=== PATIENT | male | born 1990 | race Caucasian/White ===

== ENCOUNTER 2022-07-03 10:50 | Outpatient (REF) | payer OTHER, SELFPAY ==
[2022-07-03 11:09] LABS: MANUAL DIFF FLAG NO
[2022-07-03 11:24] LABS: Basophils Percent Auto 0.4 % (0-2); Eosinophils Absolute Auto 0.1 X10*3/uL (0.0-0.4); Eosinophils Percent Auto 0.9 % (0-4); Hematocrit 46.2 % (42.0-52.0); Hemoglobin 14.8 g/dl (14.0-18.0); Imm Gran Abs Auto 0.02 X10*3/uL (0.00-0.03); Imm Gran Pct Auto 0.3 % (0.0-0.4); Lymphocytes Absolute Auto 1.7 X10*3/uL (1.2-4.9); Mean Corpuscular Hemoglobin 26.5 pg (27.0-33.0); Mean Corpuscular Volume 82.8 fL (80.0-98.0); Mean Platelet Volume 11.6 fL (9.4-12.4); Monocytes Absolute Auto 0.6 X10*3/uL (0.1-1.2); Monocytes Percent Auto 8.7 % (2-11); Neutrophils Absolute Auto 4.6 x10*3/uL (2.0-8.3); Neutrophils Percent Auto 65.7 % (45-73); Platelet Count 314 X10*3/uL (160-400); Red Blood Count 5.58 X10*6/uL (4.60-5.80); White Blood Count 7.1 X10*3/uL (4.8-10.8)
[2022-07-03 12:23] LABS: Alanine Aminotransferase 20 U/L (0-40); Albumin Level 4.4 g/dL (3.5-5.0); Alkaline Phosphatase 89 U/L (39-117); Anion Gap 14 (12-20); Aspartate Amino Transferase 23 U/L (5-37); Blood Urea Nitrogen 16 mg/dL (9-16); Calcium 9.8 mg/dL (8.4-10.2); Carbon Dioxide 30 mmol/L (22-29); Chloride 102 mmol/L (96-108); Cholesterol 134 mg/dL; Estimated Glomerular Filt Rate > 60; Glucose Random 80 mg/dL (60-115); HDL Cholesterol 51 mg/dL; LDL Cholesterol Calculated 75 mg/dl; Potassium 4.7 mmol/L (3.3-5.1); Sodium 141 mmol/L (135-145); Total Protein 7.5 g/dL (6.5-8.0); Triglycerides 40 mg/dL
[2022-07-03 12:29] LABS: Amphetamine Screen Urine Not Detected (Not Detect); Barbiturates, Urine Not Detected (Not Detect); Benzodiazepines Screen Urine Not Detected (Not Detect); Cannabinoid Screen Urine Not Detected (Not Detect); Cocaine Screen Urine Not Detected (Not Detect); Fentanyl, urine Not Detected (Not Detect); Opiate Screen Urine Not Detected (Not Detect); Phencyclidine Screen Urine Not Detected (Not Detect)
[2022-07-03 12:35] LABS: Thyroid Stimulating Hormone 0.97 uIU/mL (0.32-4.0)
== END 2022-07-03 10:51 | disposition home or self-care (01) ==
LOC: HO.LAB 10:50
PROVIDERS: PCP Internal Medicine; Visit Provider Internal Medicine
DX: Z00.00 Encounter for general adult medical examination without abnormal findings (principal); F31.9 Bipolar disorder, unspecified; F90.8 Attention-deficit hyperactivity disorder, other type
CPT/HCPCS: 80053; 80061; 80307; 84443; 85025

== ENCOUNTER 2022-11-03 16:22 | Inpatient (IN) | payer BC, SELFPAY ==
[2022-11-03] VITALS (8 sets, daily range): BP systolic 98–127; BP diastolic 55–78; PULSE 78–112; RESP 14–18; TEMP 36.4–36.6; O2SAT 93–100; BMI 25.0
--- NOTE | ~2022-11-03 | CT_ITS ---
EXAMINATION: CT chest wo IV con. CLINICAL INFORMATION: Reason for Exam diego carterer epigastric pain COMPARISON: No prior CT available for comparison. TECHNIQUE: Multidetector volumetric CT imaging of the chest was done. Axial MIP volume rendering provided. Sagittal and coronal reformatted images were obtained. This CT examination was performed using dose optimization techniques as appropriate, variously including the following: *Automated exposure control *Adjustment of mA and/or kV according to patient size (this includes techniques or standardized protocols for targeted exams where dose is matched to indication/reason for exam; i.e. extremities or head) *Use of iterative reconstruction technique CONTRAST: Noncontrasted study. DLP: 257 mGy-cm FINDINGS: COLLAR SETTER OVERLOCK: LINES/TUBES: Distance Education Faculty Liaison reviewed, no lines. LUNGS: Lung parenchyma: No evidence of significant interstitial disease. Lung nodules/masses: There are no significant lung nodules. AIRWAYS: Trachea and bronchi are normal. PLEURA: No pleural effusion or pneumothorax. MEDIASTINUM AND LAI: No mediastinal, hilar or axillary lymphadenopathy. No mediastinal mass. No CT evidence of esophageal perforation, no mediastinal pneumatosis. There is air in the esophagus. VESSELS: HEART AND PERICARDIUM: Thoracic aorta is normal in size. Heart is normal in size. No pericardial effusion. No coronary calcifications. Pulmonary arteries are normal in size. LOWER NECK, AXILLA: The visualized thyroid gland is unremarkable. No axillary mass or adenopathy. VISUALIZED ABDOMEN: Unremarkable CHEST WALL AND BONES: No chest wall mass. The visualized bony thorax is within normal limits. CT/CT chest wo IV con IMPRESSION: * No CT evidence of esophageal perforation, no mediastinal pneumatosis. There is air in the esophagus. * Lungs are clear. * No adenopathy.
--- NOTE | 2022-11-03 16:39 | ECG_ITS ---
Test Reason : OD Blood Pressure : / mmHG Vent. Rate : 103 BPM Atrial Rate : 103 BPM P-R Int : 158 ms QRS Dur : 078 ms QT Int : 308 ms P-R-T Axes : 063 026 032 degrees QTc Int : 403 ms Sinus tachycardia Otherwise normal ECG No previous ECGs available Referred By: Nicolette Singh Electronically Signed By:BROCK PATTON
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
--- NOTE | 2022-11-03 16:48 | PC.NURSE ---
call placed to poison control
--- NOTE | 2022-11-03 17:12 | PC.NURSE ---
per poison control - comfort measures at this time. possible need to contact GI to complete an upper endoscopy. keep NPO at this time
[2022-11-03 17:21] LABS: MANUAL DIFF FLAG NO
[2022-11-03 17:23] LABS: Basophils Percent Auto 0.4 % (0-2); Eosinophils Absolute Auto 0.1 X10*3/uL (0.0-0.4); Eosinophils Percent Auto 0.7 % (0-4); Hematocrit 44.2 % (42.0-52.0); Hemoglobin 14.4 g/dl (14.0-18.0); Imm Gran Abs Auto 0.04 X10*3/uL (0.00-0.03); Imm Gran Pct Auto 0.4 % (0.0-0.4); Lymphocytes Absolute Auto 1.3 X10*3/uL (1.2-4.9); Lymphocytes Percent Auto 12.3 % (20-40); Mean Corpuscular HGB Conc 32.6 g/dl (31.0-36.0); Mean Corpuscular Hemoglobin 26.3 pg (27.0-33.0); Mean Corpuscular Volume 80.8 fL (80.0-98.0); Mean Platelet Volume 10.9 fL (9.4-12.4); Monocytes Absolute Auto 0.5 X10*3/uL (0.1-1.2); Monocytes Percent Auto 4.6 % (2-11); Neutrophils Absolute Auto 8.9 x10*3/uL (2.0-8.3); Neutrophils Percent Auto 81.6 % (45-73); Platelet Count 273 X10*3/uL (160-400); Red Blood Count 5.47 X10*6/uL (4.60-5.80); Red Cell Distribution Width 14.5 % (11.0-16.0); White Blood Count 10.9 X10*3/uL (4.8-10.8)
[2022-11-03 17:31] LABS: Appearance Urine Clear; Color Urine Yellow; Glucose Urine UA Negative (Negative); Leukocyte Esterase Urine Negative (Negative); Nitrite Urine Negative (Negative); PH 6.5 (5.0-9.0); Specific Gravity - Urine 1.015 (1.005-1.025); Urine Blood Negative (Negative); Urine Ketones Negative (Negative); Urine Protein Trace mg/dL (Neg-Trace)
[2022-11-03 17:35] LABS: COVID-19 Test Negative (Negative); IDNOW Serial# 16C4AD1C
[2022-11-03 17:43] LABS: Cocaine Screen Urine Not Detected (Not Detect)
[2022-11-03 17:45] LABS: Alanine Aminotransferase 25 U/L (0-40); Albumin Level 4.3 g/dL (3.5-5.0); Alkaline Phosphatase 87 U/L (39-117); Anion Gap 13 (12-20); Aspartate Amino Transferase 24 U/L (5-37); Bilirubin Total 0.4 mg/dL (0.0-1.0); Blood Urea Nitrogen 12 mg/dL (9-16); Calcium 9.8 mg/dL (8.4-10.2); Carbon Dioxide 28 mmol/L (22-29); Chloride 105 mmol/L (96-108); Creatinine Clr Calc Pharmacy 104.6; Estimated Glomerular Filt Rate > 60; Ethanol < 10 mg/dL; Glucose Random 100 mg/dL (60-115); Lipase 18 U/L (8-78); Potassium 4.5 mmol/L (3.3-5.1); Salicylate < 5.0 mg/dL (15-30); Sodium 141 mmol/L (135-145); Total Protein 6.8 g/dL (6.5-8.0)
[2022-11-03 17:49] LABS: Fentanyl, urine Not Detected (Not Detect)
[2022-11-03 17:51] LABS: Amphetamine Screen Urine POSITIVE (Not Detect); Barbiturates, Urine Not Detected (Not Detect); Benzodiazepines Screen Urine Not Detected (Not Detect); Cannabinoid Screen Urine Not Detected (Not Detect); Opiate Screen Urine Not Detected (Not Detect); Phencyclidine Screen Urine Not Detected (Not Detect)
[2022-11-03 17:58] LABS: Acetaminophen LAB < 1 mcg/mL (<30); Troponin-I High Sensitivity < 3.5 ng/L (<3.5-35.0)
--- NOTE | 2022-11-03 20:22 | PC.NURSE ---
Janeth from Poison control called for an update on pt.
--- NOTE | 2022-11-03 20:23 | PM.EVENT ---
Event Note Date of Service: 11/03/22 Event Note: GI Consult-Full note dictated-Hx via patient and ER staff Imp: Caustic ingestion in a 30 yo male several hours ago. He describes drinking at least 10 ounces of the cleaner touch up worker, but then followed this with 6 bottles of water . Denies N/V. He has some throat discomfort. Denies swallowing nor breathing difficulties. CT of chest is unremarkable. His exam is unremarkable except for some erythema on his tongue, but no obvious duke. Rec: EGD this evening for prognostic information and to help decide further treatment re: need for hospitalization, diet, Thoracic surgery consult, etc. Full consent obtained from him for the endoscopy, including risks of bleeding and perforation. Thanks Time Spent With Patient Time: Total time managing care of this patient today ____ minutes.
--- NOTE | 2022-11-03 20:36 | MHC.SHP ---
Pre-Procedural Eval Section A Date of Service: 11/03/22 The patient is an INPATIENT: Yes The History & Physical has been completed within 30 days and I have reviewed it.: Yes Section B Chief Complaint: Stomach pain, Draino consumption per EMS Allergies: Allergies Allergy/AdvReac Type Severity Reaction Status Date / Time No Known Allergies Allergy Unverified 07/19/20 19:16 [No Known Allergies*] Plan I have reviewed the history and physical and performed a pertinent physical examination on my patient. No changes have occurred unless specified. Time Spent With Patient Time: Total time managing care of this patient today ____ minutes.
--- NOTE | 2022-11-03 20:53 | PC.NURSE ---
RN to RN report given to CLEMENTE Parkinson. Pt being transferred to the OR and is aware of plan care.
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
--- NOTE | 2022-11-03 21:47 | PM.OP ---
Brief Operative Note Date of Service: 11/03/22 Pre-op diagnosis: Caustic ingestion Post-op diagnosis: other (Grade 1-2 proximal gastric injury, normal esophagus) Procedure: EGD Surgeon: Олег Joyner Anesthesia: GETA Was an Utility Accounts Director used for this Procedure?: No Estimated blood loss (mL): 0 Pathology: none sent Condition: stable Disposition: PACU
--- NOTE | 2022-11-03 21:52 | PM.EVENT ---
Event Note Date of Service: 11/03/22 Event Note: GI-EGD-Full note dictated Findings: 1. [id number] ulcerations 2. Esophagus--no mucosal abnormalities---no ulcerations, no necrosis, no erythema, no exudate 3. Stomach-portion of the proximal stomach between 40-50cm with mucosal erythema, exudate, and some superficial ulcerations along the proximal folds---no sign of necrosis; gastric antrum and pylorus WNL 3. Duodenum WNL Plan: Observe. IV PPI x 24-48 hours, then po PPI for 1-2 months. Full liquid diet for 24 hours, then regular diet. Avoid all aspirin and NSAIDs. Thanks Time Spent With Patient Time: Total time managing care of this patient today ____ minutes.
--- NOTE | 2022-11-03 21:57 | P.CONAN_ITS ---
[facility] Active Problems Active Problems: All Active Problems (Updated 11/03/22 @ 17:55 by AGUS Kilpatrick) Suicide and self-inflicted injury by caustic substance (Acute) Family History Family history of problems with anesthesia: No Surgical History History of Problems with Anesthesia: No Social History Social History Smoked in Last 30 Days: No Advance Directives: No Advance Directives Information Provided: No Meds Allergies Allergy/AdvReac Type Severity Reaction Status Date / Time No Known Allergies Allergy Unverified 07/19/20 19:16 [No Known Allergies*] Active Medications: Current Medications Pantoprazole Sodium (Pantoprazole Sodium 40 Mg/10 Ml Vial) 40 mg IVPUSH BID@0630,1630 [facility] Exam Exam Date and Time: November 03, [id number] Height,Weight and Vital Signs: Height 5 ft 6 in Weight 70.307 kg Last Vital Signs Temp 97.9 F 11/03/22 18:39 Pulse 96 11/03/22 18:39 Resp 16 11/03/22 18:39 BP 110/68 11/03/22 18:39 Pulse Ox 97 11/03/22 18:39 O2 Del Method 11/03/22 18:39 Pertinent Lab Results Pertinent Lab Results: Laboratory Tests 11/03/22 11/03/22 11/03/22 17:13 17:13 17:13 WBC 10.9 H RBC 5.47 Hgb 14.4 Hct 44.2 MCV 80.8 MCH 26.3 L MCHC 32.6 RDW 14.5 Plt Count 273 MPV 10.9 Immature Gran % (Auto) 0.4 Neut % (Auto) 81.6 H Lymph % (Auto) 12.3 L [place] % (Auto) 4.6 Eos % (Auto) 0.7 Baso % (Auto) 0.4 Lymph # (Auto) 1.3 [place] # (Auto) 0.5 Eos # (Auto) 0.1 Baso # (Auto) 0.0 Abs Immat Gran (auto) 0.04 H Absolute Neuts (auto) 8.9 H Absolute Nucleated RBC 0.000 Nucleated RBC % (auto) 0.0 Sodium 141 Potassium 4.5 Chloride 105 Carbon Dioxide 28 Anion Gap 13 BUN 12 Creatinine 0.94 Estim Creat Clear Calc 104.6 Estimated GFR > 60 Random Glucose 100 Calcium 9.8 Magnesium 2.0 Total Bilirubin 0.4 AST 24 ALT 25 Alkaline Phosphatase 87 Troponin I High Sens < 3.5 Total Protein 6.8 Albumin 4.3 Lipase 18 Urine Color Urine Appearance Urine pH Ur Specific [place] Urine Protein Urine Glucose (UA) Urine Ketones Urine Blood Urine Nitrite Ur Leukocyte Esterase Salicylates < 5.0 L Urine Opiates Screen Urine Fentanyl Screen Acetaminophen < 1 Ur Barbiturates Screen Ur Phencyclidine Scrn Ur Amphetamines Screen U Benzodiazepines Scrn Urine Cocaine Screen U Marijuana (THC) Screen Ethyl Alcohol < 10 COVID-19 (ALEX) COVID-19 [employer] Com 11/03/22 11/03/22 11/03/22 17:13 17:21 17:21 WBC RBC Hgb Hct MCV MCH MCHC RDW Plt Count MPV Immature Gran % (Auto) Neut % (Auto) Lymph % (Auto) [place] % (Auto) Eos % (Auto) Baso % (Auto) Lymph # (Auto) [place] # (Auto) Eos # (Auto) Baso # (Auto) Abs Immat Gran (auto) Absolute Neuts (auto) Absolute Nucleated RBC Nucleated RBC % (auto) Sodium Potassium Chloride Carbon Dioxide Anion Gap BUN Creatinine Estim Creat Clear Calc Estimated GFR Random Glucose Calcium Magnesium Total Bilirubin AST ALT Alkaline Phosphatase Troponin I High Sens Total Protein Albumin Lipase Urine Color Yellow Urine Appearance Clear Urine pH 6.5 Ur Specific [place] 1.015 Urine Protein Trace Urine Glucose (UA) Negative Urine Ketones Negative Urine Blood Negative Urine Nitrite Negative Ur Leukocyte Esterase Negative Salicylates Urine Opiates Screen Not Detected Urine Fentanyl Screen Not Detected Acetaminophen Ur Barbiturates Screen Not Detected Ur Phencyclidine Scrn Not Detected Ur Amphetamines Screen POSITIVE H U Benzodiazepines Scrn Not Detected Urine Cocaine Screen Not Detected U Marijuana (THC) Screen Not Detected Ethyl Alcohol COVID-19 (ALEX) Negative COVID-19 Clin Com See Note Airway Mallampati Class: II TM Dist: >3cm Neck ROM: Full Assessment and Plan Assessment Anesthesia Assessment: Anesthesia Plan Discussed and Chart Reviewed Final Anesthetic Review Family History of Problems with Anesthesia: No History of Problems with Anesthesia: No NPO: Yes ASA Class: II and Emergency Final Preanesthetic Review: No Changes in Pt Med Stat, Meds/Allgs Chart Reviewed, Consent Obtained/Reviewed and Anes Risks/Benef Reviewed Patient Risk: Low Procedure Risk: Low Anesthetic Plan Anesthetic Plan: GA Disposition: Standard PACU
--- NOTE | 2022-11-03 22:46 | PC.NURSE ---
Pt returned from OR. Arousable to verbal stimuli. VSS. Will continue to monitor.
[2022-11-03] MEDS: Pantoprazole Sodium 40 MG/10 ML VIAL IVPUSH (23:15)
--- NOTE | 2022-11-03 23:16 | OP_ITS ---
SURGEON: Олег Joyner MD INDICATIONS: The patient presents for evaluation of caustic ingestion consisting of liquid harness cleaner. Full consent obtained from him for this, including risks of bleeding and perforation. PREOPERATIVE DIAGNOSIS: Caustic ingestion. POSTOPERATIVE DIAGNOSIS: Caustic ingestion. Grade 2A injury to the proximal stomach. Normal esophagus. PROCEDURE PERFORMED: Esophagogastroduodenoscopy. ESTIMATED BLOOD LOSS: COMPLICATIONS: ANESTHESIA: General anesthesia. ASSISTANTS: SPECIMENS: DESCRIPTION OF PROCEDURE: The patient was placed in the supine position. The Olympus video gastroscope was passed into the posterior oropharynx. Inspection of the oropharyngeal area did not reveal any sign of mucosal injury. The upper esophageal sphincter was well visualized and appeared patent and without any sign of mucosal injury. The scope easily entered into the esophagus. The esophagus was carefully inspected, and appeared completely normal without any sign of mucosal injury such as erythema, ulceration, nor necrosis. The gastroesophageal junction appeared normal at 39 cm. The scope easily entered into the stomach. The scope was advanced to the pylorus and the duodenum was cannulated to the descending portion. The duodenum including the bulb appeared normal. The scope was withdrawn back in the stomach. The pyloric channel appeared normal without any sign of stenosis, nor injury. The gastric antrum and body appeared normal with good peristalsis. There was no sign of any mucosal injury in this section. In both the forward viewing and retroflexed positions, I was able to visualize the proximal stomach carefully and in a section of the proximal stomach along the folds, between approximately 40 and 50 cm was what I would classify as a grade 2A injury with some erythema, edema, and some superficial ulcerations along the gastric folds. There is no evidence of any deep nor significant ulcers, and certainly no sign of necrosis. The area distended well. Overall, this encompassed perhaps approximately one third of the stomach in this area. The scope was then withdrawn back to the esophagus. Again, the esophagus was carefully inspected and appeared completely normal. No mucosal abnormalities were appreciated. The scope was withdrawn back in the oropharynx, which again appeared normal. The scope was withdrawn from the patient. He tolerated the procedure well and was returned to the recovery area in stable condition. IMPRESSION: Grade 2A proximal gastric injury in relation to caustic ingestion. PLAN: The patient will be kept on a PPI. Instructions have been given that he should stay on a full liquid diet for 24 hours and then advanced to a regular diet. He should avoid all aspirin and NSAIDs. I do not think any endoscopic followup would be needed given the normal appearance of the esophagus. He will see me on a p.r.n. basis. MD ANTHONY Cross/HA / [id number] MTDD
--- NOTE | 2022-11-04 02:43 | PC.NURSE ---
Patient is currently in bed appears sleeping, no distress observed/reported, behavior pleasant and non concerning, med rec completed/pending provider's approval, patient engaged well with care team, disposition is section 12 inpatient bed search, will continue to monitor.
[2022-11-04 09:01] VITALS: BP 118/64; PULSE 100; RESP 16; O2SAT 98
[2022-11-04] MEDS: Amphetamine Mixed Salts 10 MG TABLET PO ×2 (09:07→16:46)
[2022-11-04] MEDS: ARIPiprazole 5 MG TABLET PO (09:07)
--- NOTE | 2022-11-04 10:49 | PC.NURSE ---
OF PT CALLING- PT STATES HE DOES NOT WANT INFORMATION BEING DISCLOSED TO HER.
--- NOTE | 2022-11-04 12:04 | HO.POSTANES ---
Post Anesthesia Evaluation Post Anesthesia Evaluation Vital Signs: Vital Signs Pulse Resp BP Pulse Ox O2 Del Method 11/04/22 09:01 100 16 118/64 98 Room Air Anesthesia: General Mental Status: Awake Pain Control: Satisfactory Nausea/Vomiting: None Hydration: Adequate Anesthesia-Related Issues: No Anes. Related Issues
--- NOTE | 2022-11-04 12:05 | MHC.CARE ---
Left a message for patient's therapist, with whom he reports he has an appointment today @ 4, Marilia Stone [phone] for further collateral information. Requested call back.
--- NOTE | 2022-11-04 13:14 | MHC.CARE ---
statewide inpatient bedsearch completed, referrals sent to [facility] faxed referrals to review for admission
--- NOTE | 2022-11-04 13:25 | PC.NURSE ---
poison controlled updated at this time.
[2022-11-04] MEDS: Omeprazole 20 MG CAPSULE.DR PO (20:00)
[2022-11-05 04:12] VITALS: BP 118/76; PULSE 76; RESP 16; TEMP 36.7; O2SAT 96
--- NOTE | 2022-11-05 05:31 | PC.NURSE ---
Patient slept though the night, no distress observed/reported, behavior non concerning and pleasant, medication compliant, disposition per care team is section 12 inpatient bed search, per care team patient is pre-accepted to , patient contracted to safety, V[facility], will continue to monitor.
[2022-11-05 06:43] VITALS: BP 110/55; PULSE 85; RESP 16; TEMP 37.1; O2SAT 98
[2022-11-05] MEDS: Amphetamine Mixed Salts 10 MG TABLET PO (07:41)
[2022-11-05] MEDS: ARIPiprazole 5 MG TABLET PO (07:42)
[2022-11-05 07:51] VITALS: BP 120/72; PULSE 16; RESP 16; TEMP 36.8; O2SAT 96
[2022-11-05 18:00] VITALS: BP 116/60; PULSE 93; RESP 16; TEMP 37.2; O2SAT 100
[2022-11-05] MEDS: Omeprazole 20 MG CAPSULE.DR PO (18:46)
--- NOTE | 2022-11-05 18:47 | PC.NURSE ---
pt signed a 3day notice; up on 11/10 provider notified
--- NOTE | 2022-11-05 18:48 | PC.ADMIT ---
pt presented to [facility] after called 911 when pt drank drano. pt reports he stopped taking his meds for about 2 days due to stress w/ and potential divorce. He reports he tends to become extremely impulsive when he stops taking them. Reports that it was not an SI attempt but an impulsive decision due to lack of medication. Pt reports he drinks roughly 3-4 drinks every other day or so and drank the day prior to this incident. Reports no drug use or current psych symptoms. Pt is grateful to be alive an remorseful about this incident. Pts plan is reestablish medication adherenace and [id number] with therapy and current med prescriber.
[2022-11-05] MEDS: traZODone HCL 50 MG TABLET PO ×2 (20:19→21:25)
[2022-11-06 08:30] VITALS: BP 102/52; PULSE 84; TEMP 37
[2022-11-06] MEDS: Amphetamine Mixed Salts 10 MG TABLET PO ×2 (09:02→14:11)
[2022-11-06] MEDS: ARIPiprazole 5 MG TABLET PO (09:02)
[2022-11-06] MEDS: Omeprazole 20 MG CAPSULE.DR PO ×2 (09:03→16:57)
[2022-11-06 09:54] LABS: Cholesterol 142 mg/dL; HDL Cholesterol 41 mg/dL; LDL Cholesterol Calculated 84 mg/dl; Triglycerides 89 mg/dL
[2022-11-06] MEDS: Magnesium Hydrox/Alum Hydrox 30 ML ORAL.SUSP PO (10:14)
[2022-11-06 10:15] LABS: Free T4 (Free Thyroxine) 1.14 ng/dL (0.71-1.85); Thyroid Stimulating Hormone 0.47 uIU/mL (0.32-4.0)
--- NOTE | 2022-11-06 10:19 | P.HPPS_ITS ---
HPI Date of Service: 11/06/22 Chief Complaint: Suicide attempt; bipolar disorder Sources of Information: patient interviewed, chart reviewed and crisis/core team assessment reviewed HPI Subjective Notes: [place] Warning, Conditional Voluntary and 3 Day Narrative: Patient is a 31-year-old male, and father, with history of bipolar disor maria elena and ADHD, and alcohol abuse, who self presents after drinking Drano in impulsive suicidal moment in the face of marital strife and beginning of hypomania. Patient has no other history suicidality. In the ED, patient was medically cleared with negative chest CT and negative EGD. Regarding psyc hiatric illness, He was diagnosed with bipolar disorder and started on Abilify 5 mg. Patient reports that Abilify 5 mg has been helpful however he always feels on the edge of becoming a little manic. He has ongoing relational strife with his due to an affair; both are in therapy for this issue. Although relational repair has been happening, patient and had a disruptive moment where she got very angry and kicked him out of the house, throwing his stuff on the ground. Two days prior to this, for some reason, patient had an impulsive thought that maybe he does not need his Abilify and had been off it for 2 days. The combination of this emotional stress and being off his Abilify made patient vulnerable. In an impulsive moment he just wanted to be away from also problems and drink Drano. He immediately regretted it, read the back of the bottle and drink copious amounts of water and call 911. Patient denies any SI at all, or any history of such. He remains deeply regretful. Patient says he is feeling back to his regular self. He is hoping that things can be reconciled with his but is not sure. Patient reports that on Abilify 5 mg he has been feeling that he is walking a close line between stable and hypomanic; dose was increased to 10 mg a few days ago however patient agrees to trying Abilify 7.5 mg to see if this can work and thus will potentially lower risk of side effects. Past Psychiatric History: History of bipolar terrie; started on Abilify by outpatient provider Patient sees Dr. Acosta [facility] trial: Risperdal: too sedating Medical Evaluation Reviewed: Yes [facility] Medical History (Updated 11/07/22 @ 09:53 by Deonte Tineo MD) ADHD Alcohol abuse Bipolar II disorder Diagnostics Vital Signs (24Hr): Vital Signs - 24 hr 11/05/22 18:00 Temperature 99 F Pulse Rate 93 Respiratory Rate 16 Blood Pressure 116/60 Pulse Oximetry 100 Oxygen Delivery Method Room Air BMI result Body Mass Index 25.0 Labs 11/03/22 17:13 11/03/22 17:13 Labs: Laboratory Results - last 48 hr 11/06/22 08:22 Magnesium 2.0 Triglycerides 89 Cholesterol 142 LDL Cholesterol, Calc 84 HDL Cholesterol 41 TSH 0.47 Free T4 1.14 Imaging Radiology Impressions: ITS Impressions Chest CT 11/03/22 17:47 IMPRESSION: * No CT evidence of esophageal perforation, no mediastinal pneumatosis. There is air in the esophagus. * Lungs are clear. * No adenopathy. Meds/Allergies Meds Home Medications Medication Instructions Recorded Confirmed Type aripiprazole 5 mg tablet 5 mg PO QAM 11/03/22 11/03/22 History dextroamphetamine-amphetamine 10 1 tab PO BID 11/03/22 11/03/22 History mg tablet Allergies Allergies Allergy/AdvReac Type Severity Reaction Status Date / Time No Known Allergies Allergy Unverified 07/19/20 19:16 [No Known Allergies*] Mental Status Exam Mental Status Exam Narrative: Pt is alert and oriented; behavior is cooperative, friendly and calm; patient is not in distress; dressed in casual attire, well groomed and with good hygiene; mood is described as good and affect congruent; eye contact appropriate; Speech is normal rate, volume and prosody and not pressured; no psychomotor agitation/retardation present; thought process is organized and goal directed; Thought content is on tx; otherwise pertinent to relevant topics and without any delusional content, paranoid ideations or grandiosity; denies any SI/HI. There is no evidence of perceptual disturbance. Patients insight and judgment appear intact. Assessment & Plan Assessment & Plan (1) Bipolar II disorder: Status: Acute Code(s): F31.81 - Bipolar II disorder (2) ADHD: Status: Acute Code(s): F90.9 - Attention-deficit hyperactivity disorder, unspecified type (3) Alcohol abuse: Status: Acute Code(s): F10.10 - Alcohol abuse, uncomplicated Plan Patient is a 31-year-old male, and father, with history of bipolar disorder and ADHD, and alcohol abuse who self presents after drinking Drano in i mpulsive suicidal moment in the face of marital strife and beginning of hypomania. Patient has no other history suicidality. In the ED, patient was medically cleared with negative chest CT and negative EGD. -combination of being off medications, with beginning stages of hypomania and marital strife lead to impulsive behavior. Currently patient denies any current SI, remains regretful and says no history at all of any SI; patient immediately sought help. Patient says he is feeling back to his regular self -patient abuses alcohol, mostly on the weekends however he has some minimal but increasing insight, into how this has been negatively affecting his relationships (a couple of beers during the week, but bingeing on the weekends) -Patient reports that on Abilify 5 mg he remained vulnerable to hypomania. Will admit patient for safety and monitoring while increasing Abilify. -senior grant writer reviewed ED knows; GI consult notes, CT imaging; patient discussed in teams and then again with aids social worker. Plan: CV Q 15 minute checks Increase Abilify to 7.5 mg (was recently bumped up to 10 mg however this was out of convenience; will 1st see if 7.5 is stabilizing enough to mitigate risks of side effects) Continue home meds Continue GI recommendations, see below Collect collateral Patient agrees he needs to get more in touch with his alcohol abuse and limit intake GI consult: EGD-Full note dictated Findings: 1. [id number] ulcerations 2. Esophagus--no mucosal abnormalities---no ulcerations, no necrosis, no erythema, no exudate 3. Stomach-portion of the proximal stomach between 40-50cm with mucosal erythema, exudate, and some superficial ulcerations along the proximal folds ---no sign of necrosis; gastric antrum and pylorus WNL 3. Duodenum WNL Plan: Observe. IV PPI x 24-48 hours, then po PPI for 1-2 months. Full liquid diet for 24 hours, then regular diet. Avoid all aspirin and NSAIDs. Thanks Patient educated on: diagnosis, medication risk/benefits, substance abuse, therapeutic strategies and medical condition Informed Consent: understands and further education needed Reason for continued inpatient stay Substantial Risk for: rapid decompensation and med/psych decompensation Statement Statement: I have reviewed the history and physical and performed a pertinent examination on my patient. No changes have occurred unless specified. If the History and Physical was not performed prior to admission, the Hospitalist's service will be consulted for completing the admission physical. Time Spent With Patient Time: Total time managing care of this patient today ____ minutes.
[2022-11-06 10:25] LABS: Estimated Average Glucose 103 mg/dL; Hemoglobin A1c % 5.2 %
[2022-11-06 10:28] LABS: Folate 12.7 ng/mL (> or = 4.0); Vitamin B12 441 pg/mL (200-900)
[2022-11-06 14:38] VITALS: BMI 23.9
[2022-11-06 18:00] VITALS: BP 122/68; PULSE 79; RESP 16; TEMP 36; O2SAT 98
[2022-11-06] MEDS: traZODone HCL 50 MG TABLET PO ×2 (20:12→21:00)
[2022-11-06 21:20] VITALS: BMI 23.9
[2022-11-07 08:30] VITALS: BP 106/63; PULSE 85; TEMP 36.8
[2022-11-07] MEDS: Amphetamine Mixed Salts 10 MG TABLET PO ×2 (09:05→14:05)
[2022-11-07] MEDS: ARIPiprazole 5 MG TABLET 7.5 MG PO (09:06)
[2022-11-07] MEDS: Omeprazole 20 MG CAPSULE.DR PO ×2 (09:06→16:52)
--- NOTE | 2022-11-07 12:19 | P.PNPSI_ITS ---
Subjective Subjective Date of Service: 11/07/22 Reason For Visit: Suicide attempt; bipolar disorder Subjective Notes: 3 Day Interim History: Pt reports feeling fabulous. Pt reports he realized he needed the treatment here on the unit and has tried to take advantage of groups and other therapeutic interventions. He reports he has not talked with his but that they had agreed that he will go to his father's house, continue couple's therapy and then decided when it will be good time for him to return to the their house. Pt denies SI/HI. NO VH/AH. slightly overly bright affect but in good control. Per nursing, pt slept through the night. No behavioral concerns. Medication Compliance: Yes Side effects from medications: No Attending Groups: Yes Review of Systems Review of Systems Constitutional : No Weight loss, No Fever, No Chills, No Fatigue, No Malaise ENT/Mouth : No sore throat, No Rhinorrhea Eyes: No Eye Pain, No Swelling, No Redness Cardiovascular : No Chest Pain, No SOB, No Dyspnea on Exertion, No Orthopnea, No Edema, No Palpitations Respiratory : No Cough, No Sputum, No Wheezing Gastrointestinal : No Nausea, No Vomiting, No Diarrhea, No Constipation, No abdominal Pain, No Hematochezia, No Melena Genitourinary : No Dysuria, No Urinary Frequency, No Hematuria, Musculoskeletal : No joint pain, No Myalgias, No Joint Swelling Skin : No Skin Lesions, No rash Neuro : No Weakness, No Numbness, No Dizziness, No Headache Psych : No Anxiety/Panic, No Depression All other systems reviewed and are negative Yes all other systems are reviewed and are negative Mental Status Exam Mental Status Exam Narrative: Pt is alert and oriented; behavior is cooperative, friendly and calm; patient is not in distress; dressed in casual attire, well groomed and with good hygiene; mood is described as good and affect congruent; eye contact appropriate; Speech is normal rate, volume and prosody and not pressured; no psychomotor agitation/retardation present; thought process is organized and goal directed; Thought content is on tx; otherwise pertinent to relevant topics and without any delusional content, paranoid ideations or grandiosity; denies any SI/HI. There is no evidence of perceptual disturbance. Patients insight and judgment appear intact. Diagnostics Vital Signs (24Hr): Vital Signs - 24 hr 11/07/22 16:40 Temperature 98.7 F Pulse Rate 104 H Blood Pressure 111/59 L BMI result Body Mass Index 23.9 Labs 11/03/22 17:13 11/03/22 17:13 Labs: Laboratory Results - last 48 hr 11/06/22 11/06/22 11/06/22 08:22 08:22 08:22 Estimat Average Glucose 103 Hemoglobin A1c % 5.2 Magnesium 2.0 Triglycerides 89 Cholesterol 142 LDL Cholesterol, Calc 84 HDL Cholesterol 41 Vitamin B12 441 Folate 12.7 TSH 0.47 Free T4 1.14 Imaging Radiology Impressions: ITS Impressions Chest CT 11/03/22 17:47 IMPRESSION: * No CT evidence of esophageal perforation, no mediastinal pneumatosis. There is air in the esophagus. * Lungs are clear. * No adenopathy. Medications Medications Current Medications Acetaminophen (Acetaminophen 325 Mg Tablet) 650 mg PO Q6H PRN PRN Reason: Headache/Pain Mild Scale (1-3) Al Hydroxide/Mg Hydroxide (Magnesium Hydrox/Alum Hydrox 30 Ml Oral.Susp) 30 ml PO Q6H PRN PRN Reason: Heartburn/Nausea Last Admin: 11/07/22 18:16 Dose: 30 ml Amphetamine/Dextroamphetamine (Amphetamine Mixed Salts 10 Mg Tablet) 10 mg PO 0900,1400 [facility] Last Admin: 11/08/22 08:34 Dose: 10 mg Aripiprazole (Aripiprazole 5 Mg Tablet) 7.5 mg PO DAILY [facility] Last Admin: 11/08/22 08:35 Dose: 7.5 mg Hydroxyzine HCl (Hydroxyzine Hcl 25 Mg Tablet) 25 mg PO Q6H PRN PRN Reason: Anxiety Last Admin: 11/07/22 20:49 Dose: 25 mg Magnesium Hydroxide (Milk Of Magnesia 30 Ml Oral.Susp) 30 ml PO DAILY PRN PRN Reason: Constipation Omeprazole (Omeprazole 20 Mg Capsule.Dr) 20 mg PO BID@0630,1630 [facility] Last Admin: 11/08/22 06:10 Dose: 20 mg Trazodone HCl (Trazodone Hcl 50 Mg Tablet) 50 mg PO BEDTIME PRN PRN Reason: Insomnia Last Admin: 11/07/22 20:49 Dose: 50 mg Allergies Allergies Allergy/AdvReac Type Severity Reaction Status Date / Time No Known Allergies Allergy Unverified 07/19/20 19:16 [No Known Allergies*] Assessment & Plan Assessment & Plan (1) Bipolar II disorder: Status: Acute Code(s): F31.81 - Bipolar II disorder (2) ADHD: Status: Acute Code(s): F90.9 - Attention-deficit hyperactivity disorder, unspecified type (3) Alcohol abuse: Status: Acute Code(s): F10.10 - Alcohol abuse, uncomplicated Plan Patient is a 31-year-old male, and father, with history of bipolar disorder and ADHD, and alcohol abuse who self presents after drinking Drano in impulsive suicidal moment in the face of marital strife and beginning of hypomania. Patient has no other history suicidality. In the ED, patient was medically cleared with negative chest CT and negative EGD. -combination of being off medications, with beginning stages of hypomania and marital strife lead to impulsive behavior. Currently patient denies any current SI, remains regretful and says no history at all of any SI; patient immediately sought help. Patient says he is feeling back to his regular self -patient abuses alcohol, mostly on the weekends however he has some minimal but increasing insight, into how this has been negatively affecting his relationships (a couple of beers during the week, but bingeing on the weekends) -Patient reports that on Abilify 5 mg he remained vulnerable to hypomania. Will admit patient for safety and monitoring while increasing Abilify. -automobile and property underwriter reviewed ED knows; GI consult notes, CT imaging; patient discussed in teams and then again with social organization professor. Plan: CV Q 15 minute checks Increase Abilify to 7.5 mg (was recently bumped up to 10 mg however this was out of convenience; will 1st see if 7.5 is stabilizing enough to mitigate risks of side effects) Continue home meds Continue GI recommendations, see below Collect collateral Patient agrees he needs to get more in touch with his alcohol abuse and limit intake GI consult: EGD-Full note dictated Findings: 1. [id number] ulcerations 2. Esophagus--no mucosal abnormalities---no ulcerations, no necrosis, no erythema, no exudate 3. Stomach-portion of the proximal stomach between 40-50cm with mucosal erythema, exudate, and some superficial ulcerations along the proximal folds---no sign of necrosis; gastric antrum and pylorus WNL 3. Duodenum WNL Plan: Observe. IV PPI x 24-48 hours, then po PPI for 1-2 months. Full liquid diet for 24 hours, then regular diet. Avoid all aspirin and NSAIDs. Thanks 11/07/22 continue tx. d/c tomorrow. Reason for contiued inpatient stay Substantial Risk for: stable for discharge Time Spent With Patient Time: Total time managing care of this patient today ____ minutes.
[2022-11-07 16:40] VITALS: BP 111/59; PULSE 104; TEMP 37.1
[2022-11-07] MEDS: Magnesium Hydrox/Alum Hydrox 30 ML ORAL.SUSP PO (18:16)
[2022-11-07] MEDS: traZODone HCL 50 MG TABLET PO (20:49)
[2022-11-07] MEDS: hydrOXYzine HCL 25 MG TABLET PO (20:49)
[2022-11-08] MEDS: Omeprazole 20 MG CAPSULE.DR PO (06:10)
[2022-11-08] MEDS: Amphetamine Mixed Salts 10 MG TABLET PO (08:34)
[2022-11-08] MEDS: ARIPiprazole 5 MG TABLET 7.5 MG PO (08:35)
--- NOTE | 2022-11-08 09:28 | P.DS_ITS ---
DS: Providers Provider Date of Service: 11/08/22 Date of admission: 11/05/22 10:57 Primary care physician: Arelis Gilbert MD DS: Diagnosis Discharge Diagnosis (1) Bipolar II disorder: Status: Acute (2) ADHD: Status: Acute (3) Alcohol abuse: Status: Acute DS: Medications Discharge Medications Home Medications: Home Medications Medication Instructions Recorded Confirmed dextroamphetamine-amphetamine 10 1 tab PO BID 11/03/22 11/03/22 mg tablet Previous Rx's Medication Instructions Recorded aripiprazole 5 mg tablet (Abilify) 7.5 mg PO DAILY #15 tabs 11/08/22 dextroamphetamine-amphetamine 10 10 mg PO 0900,1400 #14 tabs 11/08/22 mg tablet omeprazole 40 mg capsule,delayed 40 mg PO DAILY #30 caps 11/08/22 release trazodone 50 mg tablet 50 mg PO BEDTIME PRN Insomnia #30 11/08/22 tabs Mental Status Exam Mental Status Exam Narrative: Pt is alert and oriented; behavior is cooperative, friendly and calm; patient is not in distress; dressed in casual attire, well groomed and with good hygiene; mood is described as fabulous and affect congruent, slightly expansive; eye contact appropriate; Speech is normal rate, volume and prosody and not pressured; no psychomotor agitation/retardation present; thought process is organized and goal directed; Thought content is on tx; otherwise pertinent to relevant topics and without any delusional content, paranoid ideations or grandiosity; denies any SI/HI. There is no evidence of perceptual disturbance. Patients insight and judgment appear intact. Data Data Completed and Pending Completed studies during hospitalization [Text1]: 11/03/22 11/03/22 11/03/22 17:13 17:13 17:13 WBC 10.9 H RBC 5.47 Hgb 14.4 Hct 44.2 MCV 80.8 MCH 26.3 L MCHC 32.6 RDW 14.5 Plt Count 273 MPV 10.9 Immature Gran % (Auto) 0.4 Neut % (Auto) 81.6 H Lymph % (Auto) 12.3 L Rosebud % (Auto) 4.6 Eos % (Auto) 0.7 Baso % (Auto) 0.4 Lymph # (Auto) 1.3 Rosebud # (Auto) 0.5 Eos # (Auto) 0.1 Baso # (Auto) 0.0 Abs Immat Gran (auto) 0.04 H Absolute Neuts (auto) 8.9 H Absolute Nucleated RBC 0.000 Nucleated RBC % (auto) 0.0 Sodium 141 Potassium 4.5 Chloride 105 Carbon Dioxide 28 Anion Gap 13 BUN 12 Creatinine 0.94 Estim Creat Clear Calc 104.6 Estimated GFR > 60 Random Glucose 100 Estimat Average Glucose Hemoglobin A1c % Calcium 9.8 Magnesium 2.0 Total Bilirubin 0.4 AST 24 ALT 25 Alkaline Phosphatase 87 Troponin I High Sens < 3.5 Total Protein 6.8 Albumin 4.3 Triglycerides Cholesterol LDL Cholesterol, Calc HDL Cholesterol Lipase 18 Vitamin B12 Folate TSH Free T4 Urine Color Urine Appearance Urine pH Ur Specific Rowley Urine Protein Urine Glucose (UA) Urine Ketones Urine Blood Urine Nitrite Ur Leukocyte Esterase Salicylates < 5.0 L Urine Opiates Screen Urine Fentanyl Screen Acetaminophen < 1 Ur Barbiturates Screen Ur Phencyclidine Scrn Ur Amphetamines Screen U Benzodiazepines Scrn Urine Cocaine Screen U Marijuana (THC) Screen Ethyl Alcohol < 10 COVID-19 (ALEX) COVID-19 Clin Com 11/03/22 11/03/22 11/03/22 17:13 17:21 17:21 WBC RBC Hgb Hct MCV MCH MCHC RDW Plt Count MPV Immature Gran % (Auto) Neut % (Auto) Lymph % (Auto) Rosebud % (Auto) Eos % (Auto) Baso % (Auto) Lymph # (Auto) Rosebud # (Auto) Eos # (Auto) Baso # (Auto) Abs Immat Gran (auto) Absolute Neuts (auto) Absolute Nucleated RBC Nucleated RBC % (auto) Sodium Potassium Chloride Carbon Dioxide Anion Gap BUN Creatinine Estim Creat Clear Calc Estimated GFR Random Glucose Estimat Average Glucose Hemoglobin A1c % Calcium Magnesium Total Bilirubin AST ALT Alkaline Phosphatase Troponin I High Sens Total Protein Albumin Triglycerides Cholesterol LDL Cholesterol, Calc HDL Cholesterol Lipase Vitamin B12 Folate TSH Free T4 Urine Color Yellow Urine Appearance Clear Urine pH 6.5 Ur Specific Rowley 1.015 Urine Protein Trace Urine Glucose (UA) Negative Urine Ketones Negative Urine Blood Negative Urine Nitrite Negative Ur Leukocyte Esterase Negative Salicylates Urine Opiates Screen Not Detected Urine Fentanyl Screen Not Detected Acetaminophen Ur Barbiturates Screen Not Detected Ur Phencyclidine Scrn Not Detected Ur Amphetamines Screen POSITIVE H U Benzodiazepines Scrn Not Detected Urine Cocaine Screen Not Detected U Marijuana (THC) Screen Not Detected Ethyl Alcohol COVID-19 (ALEX) Negative COVID-19 Clin Com See Note 11/06/22 11/06/22 11/06/22 08:22 08:22 08:22 WBC RBC Hgb Hct MCV MCH MCHC RDW Plt Count MPV Immature Gran % (Auto) Neut % (Auto) Lymph % (Auto) Rosebud % (Auto) Eos % (Auto) Baso % (Auto) Lymph # (Auto) Rosebud # (Auto) Eos # (Auto) Baso # (Auto) Abs Immat Gran (auto) Absolute Neuts (auto) Absolute Nucleated RBC Nucleated RBC % (auto) Sodium Potassium Chloride Carbon Dioxide Anion Gap BUN Creatinine Estim Creat Clear Calc Estimated GFR Random Glucose Estimat Average Glucose 103 Hemoglobin A1c % 5.2 Calcium Magnesium 2.0 Total Bilirubin AST ALT Alkaline Phosphatase Troponin I High Sens Total Protein Albumin Triglycerides 89 Cholesterol 142 LDL Cholesterol, Calc 84 HDL Cholesterol 41 Lipase Vitamin B12 441 Folate 12.7 TSH 0.47 Free T4 1.14 Urine Color Urine Appearance Urine pH Ur Specific Rowley Urine Protein Urine Glucose (UA) Urine Ketones Urine Blood Urine Nitrite Ur Leukocyte Esterase Salicylates Urine Opiates Screen Urine Fentanyl Screen Acetaminophen Ur Barbiturates Screen Ur Phencyclidine Scrn Ur Amphetamines Screen U Benzodiazepines Scrn Urine Cocaine Screen U Marijuana (THC) Screen Ethyl Alcohol COVID-19 (ALEX) COVID-19 Clin Com Imaging Diagnostic Imaging Impressions Chest CT 11/03/22 17:47 IMPRESSION: * No CT evidence of esophageal perforation, no mediastinal pneumatosis. There is air in the esophagus. * Lungs are clear. * No adenopathy. DS: Summary Hospital Course Hospital Course: HPI: Patient is a 31-year-old male, and father, with history of bipolar disorder and ADHD, and alcohol abuse, who self presents after drinking Drano in impulsive suicidal moment in the face of marital strife and beginning of hypomania.? Patient has no other history suicidality.? In the ED, patient was medically cleared with negative chest CT and negative EGD.? Regarding psychiatric illness,? He was diagnosed with bipolar disorder and started on Abilify 5 mg.? Patient reports that Abilify 5 mg has been helpful however he always feels on the edge of becoming a little manic.? He has ongoing relational strife with his due to an affair; both are in therapy for this issue.? Although relational repair has been happening, patient and had a disruptive moment where she got very angry and kicked him out of the house, throwing his stuff on the ground.? Two days prior to this, for some reason, patient had an impulsive thought that maybe he does not need his Abilify and had been off it for 2 days.? The combination of this emotional stress and being off his Abilify made patient vulnerable.? In an impulsive moment he just wanted to be away from also problems and drink Drano.? He immediately regretted it, read the back of the bottle and drink copious amounts of water and call 911.? Patient denies any SI at all, or any history of such.? He remains deeply regretful.? Patient says he is feeling back to his regular self.? He is hoping that things can be reconciled with his but is not sure.? Patient reports that on Abilify 5 mg he has been feeling that he is walking a close line between stable and hypomanic; dose was increased to 10 mg a few days ago however patient agrees to trying Abilify 7.5 mg to see if this can work and thus will potentially lower risk of side effects. HOSPITAL COURSE On the unit, Mr. Meneses was admitted on a CV and placed on 15 minutes checks for safety. After discussing risks, benefits and alternative treatment options, pt was continued on abilify, dose increase to 7.5mg po daily. He was continued on adderall- discussed increase irritability with adderral and consideration of methyphenidate formulations instead but he can decide with his OP psychiatrist. He adamantly denies suicidal or homicidal ideation. He showed increased insight into impulsive behaviors and how this suicide attempt affected his and family. He expressed feeling very regretful. He was open to continue psychiatric treatment. Collateral information gathered from father who denies any safety concerns at time of discharge. On the unit, pt was visible, attended assigned groups. He was sleeping and eating well. There were no incidences of disruptive behaviors nor use of restraints. Status at Discharge Cognitive/behavioral status at discharge: Pt with bright affect, slightly expansive but no over labile mood. No SI/HI. No psychosis or delusions. Sleeping and eating well. No signs of aggression towards self or others. Pt appears hopeful that with continued psych treatment he can work things through with his . Functional status at discharge: independent ambulation Overall status at discharge: patient is progressing back to baseline Time Spent with Patient Time attestation: Total time managing care of this patient today ____ minutes. Discharge Plan Discharge Anticipated Discharge Date/Time: 11/08/22 09:22 Patient Disposition: Home, Self-Care Discharge Diagnosis: Bipolar type 2 Referrals: [facility] [Other] - 11/11/22 2:00 pm (Follow-up discharge appointment with psychiatrist Appointment is in Person at [facility]) [facility] [Other] - 11/10/22 9:00 am (Follow-up discharge appointment with therapist) Arelis Gilbert MD [Primary Care Provider] - 1 Week Discharge Medications: New trazodone 50 mg Tablet 50 mg PO BEDTIME PRN (Reason: Insomnia) Qty: 30 0RF dextroamphetamine-amphetamine 10 mg Tablet 10 mg PO 0900,1400 Qty: 14 0RF Rx Instructions: Partial Fill upon patient request. aripiprazole [Abilify] 5 mg Tablet 7.5 mg PO DAILY Qty: 15 0RF omeprazole 40 mg capsule,delayed release(DR/EC) 40 mg PO DAILY Qty: 30 0RF Continued dextroamphetamine-amphetamine 10 mg tablet 1 tab PO BID Discontinued aripiprazole 5 mg tablet 5 mg PO QAM Discharge Orders: Discharge Order (Routine); Ordered 11/08/22 Ordered By: Reyna Dunn Diet: Regular diet Activity on Discharge: As tolerated Stand Alone Forms: Patient Portal Discharge page Care Plan Goals: 1. Maintain mood 2. No SI/HI 3. no aggression towards self or others Health Concerns: Follow up with PCP Plan of Treatment: 1. take medications as prescribed 2. Go to nearest ED or call 911 in event of emergency Assessment: Pt with bright, slightly expansive, no overtly labile. No SI/HI. No psychosis or delusions. Future oriented in that he is looking forward to see family and continue OP psych tx. no signs of aggression towards self or others.
== END 2022-11-08 14:00 | disposition home or self-care (01) | DRG 753 ==
LOC: HO.ED 20:54 → HO.SSS 23:28 → HO.ED 11-04 06:28 → HO.PM5 11-05 14:05
PROVIDERS: Internal Medicine; Physician Assistant; Admitting Provider Clinical Nurse Specialist Psychiatric/Mental Health, Adult; Emergency Provider Emergency Medicine Emergency Medical Services; PCP Internal Medicine; Visit Provider Clinical Nurse Specialist Psychiatric/Mental Health, Adult
PROC: 0DJ08ZZ Inspection of Upper Intestinal Tract, Via Natural or Artificial Opening Endoscopic (ICD-10-PCS; CPT 43235; principal; 2022-11-03 22:00)
DX: F31.81 Bipolar II disorder (principal); T28.7XXA Corrosion of other parts of alimentary tract, initial encounter; R45.851 Suicidal ideations; F10.10 Alcohol abuse, uncomplicated; T54.3X2A Toxic effect of corrosive alkalis and alkali-like substances, intentional self-harm, initial encounter; Z91.14 Patient's other noncompliance with medication regimen; F90.9 Attention-deficit hyperactivity disorder, unspecified type; Z87.891 Personal history of nicotine dependence; Z20.822 Contact with and (suspected) exposure to COVID-19; Z79.899 Other long term (current) drug therapy
CPT/HCPCS: 36415; 71250; 80053; 80061; 80143; 80179; 80307; 81003; 82077; 82607; 82746; 83036; 83690; 83735; 84439; 84443; 84484; 85025; 87635; 93005; 99285; J1100; J2250; J2405; S9485

== ENCOUNTER 2023-08-18 14:01 | Outpatient (REF) | payer BC, SELFPAY ==
[2023-08-18 14:15] LABS: MANUAL DIFF FLAG NO
[2023-08-18 14:38] LABS: Basophils Absolute Auto 0.1 X10*3/uL (0.0-0.2); Basophils Percent Auto 0.9 % (0-2); Eosinophils Absolute Auto 0.1 X10*3/uL (0.0-0.4); Eosinophils Percent Auto 1.5 % (0-4); Hematocrit 47.1 % (42.0-52.0); Hemoglobin 15.4 g/dl (14.0-18.0); Imm Gran Abs Auto 0.01 X10*3/uL (0.00-0.03); Imm Gran Pct Auto 0.1 % (0.0-0.4); Lymphocytes Absolute Auto 2.1 X10*3/uL (1.2-4.9); Lymphocytes Percent Auto 30.6 % (20-40); Mean Corpuscular HGB Conc 32.7 g/dl (31.0-36.0); Mean Corpuscular Hemoglobin 27.3 pg (27.0-33.0); Mean Corpuscular Volume 83.5 fL (80.0-98.0); Mean Platelet Volume 11.4 fL (9.4-12.4); Monocytes Absolute Auto 0.5 X10*3/uL (0.1-1.2); Monocytes Percent Auto 7.5 % (2-11); Neutrophils Percent Auto 59.4 % (45-73); Platelet Count 263 X10*3/uL (160-400); Red Blood Count 5.64 X10*6/uL (4.60-5.80); White Blood Count 6.7 X10*3/uL (4.8-10.8)
[2023-08-18 15:30] LABS: Alanine Aminotransferase 16 U/L (0-40); Albumin Level 4.4 g/dL (3.5-5.0); Alkaline Phosphatase 97 U/L (39-117); Anion Gap 13 (12-20); Aspartate Amino Transferase 21 U/L (5-37); Bilirubin Total 0.4 mg/dL (0.0-1.0); Blood Urea Nitrogen 15 mg/dL (9-16); Calcium 9.7 mg/dL (8.4-10.2); Carbon Dioxide 28 mmol/L (22-29); Chloride 103 mmol/L (96-108); Cholesterol 137 mg/dL (<200); Estimated Glomerular Filt Rate > 60; Glucose Random 97 mg/dL (60-115); HDL Cholesterol 43 mg/dL (>40); LDL Cholesterol Calculated 67 mg/dL (<100); Potassium 4.3 mmol/L (3.3-5.1); Sodium 140 mmol/L (135-145); Total Protein 7.2 g/dL (6.5-8.0); Triglycerides 139 mg/dL (<150)
[2023-08-18 16:57] LABS: CT PCR DETECTED (Not Detect.); NG PCR NOT DETECTED (Not Detect.)
[2023-08-19 08:26] LABS: HIV AB/AG Nonreactive (Nonreactive); HIV Num 1 0.05 S/CO (0.00-0.99)
== END 2023-08-18 14:02 | disposition home or self-care (01) ==
LOC: HO.LAB 14:01
PROVIDERS: PCP Internal Medicine; Visit Provider Internal Medicine
DX: Z00.00 Encounter for general adult medical examination without abnormal findings (principal); Z11.4 Encounter for screening for human immunodeficiency virus [HIV]; Z20.2 Contact with and (suspected) exposure to infections with a predominantly sexual mode of transmission; K21.9 Gastro-esophageal reflux disease without esophagitis; G56.02 Carpal tunnel syndrome, left upper limb; R13.19 Other dysphagia; E78.00 Pure hypercholesterolemia, unspecified
CPT/HCPCS: 0353U; 80053; 80061; 85025; 87389

== ENCOUNTER 2023-09-07 15:23 | Outpatient (AMB) | payer BC, SELFPAY ==
--- NOTE | 2023-09-07 15:24 | MHC.OFFVIS ---
Intake Vital Signs 09/07/23 15:27 Height 5 ft 5 in Weight 154 lb BMI 25.6 BP 130/74 Blood Pressure Location Rt brachial Position Sitting Pulse 100 Intake Visit Reasons: pigmented lesion left mastoid Intake Note: Patient referred for 2 moles on Lt post scalp. C/o irritation when rubbing on glasses. Paternal grandmother hx of Melanoma. Gig Tender Required: No Accompanied by: Self / Same As Patient Allergies No Known Allergies [No Known Allergies*] Allergy (Unverified 09/07/23 15:30) Medication List - Last Reconciled 09/08/23 by Dereck Roberson MD dextroamphetamine-amphetamine 10 mg 1 tab PO BID dextroamphetamine-amphetamine 10 mg 10 mg PO 0900,1400 omeprazole 40 mg PO DAILY HPI HPI Comments History of Present Illness Details Patient presents with 2 super superficial left postauricular skin lesions which he has had for many years time. He would like to have them removed. He has no such lesions elsewhere. Chart was reviewed patient evaluated [facility] Medical History (Updated 09/07/23 @ 15:32 by DORETHA Colón) Anxiety Acute depression Alcohol abuse ADHD Bipolar II disorder Surgical History (Updated 09/08/23 @ 08:51 by Dereck Roberson MD) History of endoscopy Social History (Updated 09/07/23 @ 15:33 by DORETHA Colón) Household Members: Other Household Members Other:: cousin Housing: House Do you presently have visiting nurse or other home services: No Alcohol intake: never Patient Tobacco Use Status: Former Tobacco user Quit Date: over 5yrs ago Tobacco use type: Smokeless Tobacco e-Cigarette/Vaping Use: Former Use Second Hand Smoke Exposure: No service: No Sexual orientation: Straight/Heterosexual Physical Exam Vital Signs: Last Vital Signs Pulse 100 09/07/23 15:27 BP 130/74 09/07/23 15:27 BMI result Body Mass Index 25.6 HEENT Other: Patient has 2 0.5 x 0.5 superficial nevi/skin lesions of the left occipital postauricular area. No cervical or periclavicular adenopathy. Office Procedures Excision Details: Risks, benefits, alternatives of tangential shave excision of his 2 post auricular skin lesions were reviewed the patient included but not limited to bleeding, infection, recurrence, numbness, pain, scarring the patient wished to proceed, all questions were answered. Consent signed After appropriate positioning, patient underwent 1% lidocaine and Betadine prep and uneventful shave excision of 2 lesions measuring approximately 0.5 x 0.5 cm each. Wound bases were cauterized with silver nitrate followed by bacitracin and sterile dressings. Patient tolerated procedure well. 61492-[id number] face/ear/eyelid/nose/lip/mucous membrane 0.6cm-1cm Procedure code (CPT) selection complete Office Meds lidocaine 1 %-epinephrine 1:100,000 injection solution Performing Provider: Dereck Roberson MD Performing Location: [facility] [place] [facility] Surgeons Administered by: Dereck Roberson MD on 09/08/23 08:48 Dose Route Admin Location Dispensed Lot Number Expiration Date [facility] Gas Worker 10 mL Infiltration 10 mL Assessment & Plan Assessment & Plan (1) Skin lesion: Code(s): L98.9 - Disorder of the skin and subcutaneous tissue, unspecified Plan: Patient has been given local instructions including bacitracin to the wounds each day, may shower in 2 days, no strenuous activities, and will see me in proximal weeks time or p.r.n.. Orders: Orders AMB Excision 09/07/23 L98.9 - Disorder of the skin and subcutaneous tissue, unspecified Coding Level of Care Code New Pt Level 4 (34058) Diagnoses Skin lesion L98.9 CPT Codes Face/Ear/Eyelid/Nose/Lip/Mucous Membrane - CPT: 36413-[id number] face/ear/eyelid/nose/lip/mucous membrane 0.6cm-1cm ([id number])
[2023-09-07 15:27] VITALS: BP 130/74; PULSE 100; BMI 25.6
== END 2023-09-07 15:49 | disposition home or self-care (01) ==
PROVIDERS: PCP Internal Medicine; Visit Provider Surgery
DX: L98.9 Disorder of the skin and subcutaneous tissue, unspecified (principal); D22.4 Melanocytic nevi of scalp and neck
CPT/HCPCS: 11420; 11421; 99204

== ENCOUNTER → 2023-09-07 15:23 | Outpatient (BNVA) | payer BC, SELFPAY | PROVIDERS: PCP Internal Medicine; Visit Provider Surgery | DX: D22.4 Melanocytic nevi of scalp and neck (principal) | CPT/HCPCS: 11420; 11421 ==

== ENCOUNTER 2023-09-07 15:45 | Outpatient (REF) | payer BC, SELFPAY | END 2023-09-07 15:46 | disposition home or self-care (01) | LOC: HO.LNP 15:45 | PROVIDERS: Visit Provider Surgery | DX: L98.9 Disorder of the skin and subcutaneous tissue, unspecified (principal) | CPT/HCPCS: 88305 ==

== ENCOUNTER 2023-09-15 15:28 | Outpatient (AMB) | payer BC, SELFPAY ==
[2023-09-15 15:32] VITALS: BP 118/65; PULSE 93; BMI 26.0
--- NOTE | 2023-09-15 15:32 | MHC.OFFVIS ---
Intake Vital Signs 09/15/23 15:32 Height 5 ft 5 in Weight 156 lb BMI 26.0 BP 118/65 Blood Pressure Location Rt brachial Position Sitting Pulse 93 Intake Visit Reasons: S/p Exc pigmented lesion left mastoid Intake Note: Patient here s/p exc X2 on Left sup and inf post neck on scalp. Reports scar healing well. Denies bleeding, oozing, itch. Potato Spotter Required: No Accompanied by: Self / Same As Patient Allergies No Known Allergies [No Known Allergies*] Allergy (Unverified 09/15/23 15:33) HPI HPI Comments History of Present Illness Details Patient presents for follow-up. No wound issues or complaints. Pathology was reviewed with the patient. Benign lesions. Unlikely possible local recurrence. [facility] Medical History Anxiety Acute depression Alcohol abuse ADHD Bipolar II disorder Surgical History (Updated 09/15/23 @ 15:35 by DORETHA Colón) Hx of surgical procedure (09/07/23) History of endoscopy Social History Household Members: Other Household Members Other:: cousin Housing: House Do you presently have visiting nurse or other home services: No Alcohol intake: never Patient Tobacco Use Status: Former Tobacco user Quit Date: over 5yrs ago Tobacco use type: Smokeless Tobacco e-Cigarette/Vaping Use: Former Use Second Hand Smoke Exposure: No service: No Sexual orientation: Straight/Heterosexual Physical Exam Vital Signs: Last Vital Signs Pulse 93 09/15/23 15:32 BP 118/65 09/15/23 15:32 BMI result Body Mass Index 26.0 HEENT Other: Wounds clean dry and intact. Assessment & Plan Assessment & Plan (1) Skin lesion: Code(s): L98.9 - Disorder of the skin and subcutaneous tissue, unspecified Plan: Patient has been given local wound instructions, and will follow-up p.r.n. Coding Level of Care Code Global (44355) Diagnoses Skin lesion L98.9
== END 2023-09-15 15:40 | disposition home or self-care (01) ==
PROVIDERS: PCP Internal Medicine; Visit Provider Surgery
DX: L98.9 Disorder of the skin and subcutaneous tissue, unspecified (principal)
CPT/HCPCS: 99024

== ENCOUNTER → 2023-09-15 15:28 | Outpatient (BNVA) | payer BC, SELFPAY | PROVIDERS: PCP Internal Medicine; Visit Provider Surgery ==

== ENCOUNTER 2023-10-15 11:37 | Outpatient (REF) | payer BC, SELFPAY ==
[2023-10-15 16:36] LABS: CT PCR NOT DETECTED (Not Detect.); NG PCR NOT DETECTED (Not Detect.)
== END 2023-10-15 11:38 | disposition home or self-care (01) ==
LOC: HO.LAB 11:37
PROVIDERS: PCP Internal Medicine; Visit Provider Internal Medicine
DX: A56.2 Chlamydial infection of genitourinary tract, unspecified (principal)
CPT/HCPCS: 0353U

== ENCOUNTER 2023-11-08 15:34 | Emergency (ER) | payer BC, SELFPAY ==
[2023-11-08 15:40] VITALS: BP 110/83; PULSE 95; RESP 18; TEMP 36.8; O2SAT 99; BMI 25.1
--- NOTE | 2023-11-08 15:45 | ED.GENADULT ---
HPI - General Adult General Chief complaint: Back Pain/Injury Stated complaint: lower back pain,fell Time Seen by Provider: 11/08/23 15:44 Source: patient Mode of arrival: ambulatory Limitations: no limitations History of Present Illness HPI narrative: 32 yold male healthy presents to the ED for low back since 6:00pm yesterday. Patient states yesterday while bending down on his truck heard a pop in his back. Patient states since then having have pain on ambulation and movement. Patient denies any head trauma or loss of consciousness. Patient denies any urinary/bowel incontinence. Patient denies any IV drug use. Patient states no immunocompromised disease history. patient denies any abdominal pain, dysuria, hematuria, flank pain, fever, chills, nuasea, and vomitting. Related Data Home Medications Medication Instructions Recorded Confirmed dextroamphetamine-amphetamine 10 1 tab PO BID 11/03/22 11/03/22 mg tablet Previous Rx's Medication Instructions Recorded dextroamphetamine-amphetamine 10 10 mg PO 0900,1400 #14 tabs 11/08/22 mg tablet omeprazole 40 mg capsule,delayed 40 mg PO DAILY #30 caps 11/08/22 release cyclobenzaprine 10 mg tablet 10 mg PO TID PRN muscle spasm 7 11/08/23 days #21 tabs lidocaine 4 % topical patch 1 patch topical DAILY PRN pain #10 11/08/23 ea naproxen 500 mg tablet 500 mg PO BID PRN pain 7 days #14 11/08/23 tabs Allergies Allergy/AdvReac Type Severity Reaction Status Date / Time No Known Allergies Allergy Unverified 09/15/23 15:33 [No Known Allergies*] Review of Systems Review of Systems: low back pain Yes all other systems are reviewed and are negative PMFSH Past Medical History Onset Date is defined in the Problem List Problems that require an onset date and time if occurred within 24 hrs of arrival to the ED Aortic Dissection and Rupture; Neurologic impairment; Cardiopulmonary Arrest; Endotracheal Intubation; Insertion or Replacement of Mechanical Circulatory Assist Device Medical History (Updated 11/09/23 @ 00:00 by Michel Dorantes) Anxiety Acute depression Alcohol abuse ADHD Bipolar II disorder Surgical History (Updated 09/15/23 @ 15:35 by DORETHA Colón) Hx of surgical procedure (09/07/23) History of endoscopy Social History Social History Household Members: Other Household Members Other:: cousin Housing: House Do you presently have visiting nurse or other home services: No Alcohol intake: never Patient Tobacco Use Status: Former Tobacco user Quit Date: over 5yrs ago Tobacco use type: Smokeless Tobacco e-Cigarette/Vaping Use: Former Use Second Hand Smoke Exposure: No service: No Sexual orientation: Straight/Heterosexual Physical Exam ED Vital Signs: Vital Signs - 24 hr 11/08/23 15:40 Temperature 98.2 F Pulse Rate 95 Respiratory Rate 18 Blood Pressure 110/83 Pulse Oximetry 99 Oxygen Delivery Method Room Air BMI result Body Mass Index 25.1 Const General: cooperative, healthy appearing, comfortable, no acute distress, well developed, alert and awake Orientation/consciousness: oriented to person, oriented to place, oriented to time and patient oriented x3 HENMT Head: Yes normal to inspection, Yes No palpable skull fracture present, Yes normocephalic and Yes atraumatic Eyes General: appearance normal, both eyes and all related structures Neck Neck: Yes normal visual inspection, Yes full ROM, Yes no lymphadenopathy, Yes no meningeal signs, Yes trachea midline, Yes supple, No anterior neck swelling and No tender Chest Chest palpation & inspection: normal inspection of the chest and normal palpation of entire chest wall Resp Effort & Inspection: normal respiratory effort and able to speak in complete sentences Auscultation: clear to auscultation bilaterally Cardio Jugular venous distension: no JVD Heart sounds: S1 normal heart sound present and S2 normal heart sound present GI Inspection: Yes normal to inspection Palpation (GI): Soft to palpation, not firm, nontender, no guarding and not rigid General: Yes no CVA tenderness Back/Spine/Pelvis Back: no CVA tenderness and back tenderness (lumbar spine) Skin General skin exam: no rashes or lesions noted, elasticity normal and turgor normal Neuro General: oriented to person, oriented to place, oriented to time, patient oriented x3, gait normal, tone normal, moves all extremities, Normal light touch and pain sensation, no meningeal signs, no focal motor deficits, CN's II-XI intact bilaterally and normal sensation to monofilament Extrem General: Yes normal to inspection and Yes full ROM Psych Appearance: grossly normal, well kempt and not disheveled Course Course Course Narrative: RME: 32 yold male presents to the ED for back pain since 6:00pm. Patient states bending down and hearing popping sound in low back. Patient denies any blunt trauma, nuasea, vomitting, abdominal pain, flank pain, sytmpoms, dysura, hematuria, fever, or chills. Medications Administered Discontinued Medications Generic Name Dose Route Start Last Admin Trade Name Freq PRN Reason Stop Dose Admin Cyclobenzaprine HCl 10 mg 11/08/23 15:43 11/08/23 16:25 Cyclobenzaprine Hcl 10 Mg Tablet PO 11/08/23 15:44 10 mg ONCE ONE Administration Ketorolac Tromethamine 30 mg 11/08/23 15:43 11/08/23 16:25 Ketorolac Tromethamine 30 Mg/Ml Vial IM 11/08/23 15:44 30 mg ONCE ONE Administration Oxycodone HCl 5 mg 11/08/23 18:40 11/08/23 18:45 Oxycodone Hcl Immed Release 5 Mg Tablet PO 11/08/23 18:41 5 mg ONCE ONE Administration Prednisone 40 mg 11/08/23 15:43 11/08/23 16:25 Prednisone 20 Mg Tablet PO 11/08/23 15:44 40 mg ONCE ONE Administration Medical Decision Making Medical Decision Making MDM Narrative: 32-year-old male presents to ED for low back pain after bending down and hearing a pop yesterday in low back. Patient states pain and moving ever since. Patient denies any abdominal pain, urinary symtpoms, complaints, urinary/bowel incontience, fever, recent trauma, or chills. Xray and pain meds ordered. not suspecting epidural abscess, or caudina equina syndrome. Differential Diagnosis Differential Diagnoses: The differential diagnosis associated with the presentation includes Lab Data Labs: Lab Results 11/08/23 Range/Units 18:25 Urine Color Yellow Urine Appearance Turbid Urine pH 8.5 (5.0-9.0) Ur Specific [place] 1.020 (1.005-1.025) Urine Protein Negative (Neg-Trace) mg/dL Urine Glucose (UA) Negative (Negative) mg/dL Urine Ketones Negative (Negative) mg/dL Urine Blood Negative (Negative) Urine Nitrite Negative (Negative) Ur Leukocyte Esterase Negative (Negative) Independent Interpretation I performed an independent interpretation of an: Plain X-Ray Radiology Impression Discussion of test interpretation with radiology: I have reviewed the radiologist's reading. Discharge Plan Discharge Clinical Impression: Back pain Patient Disposition: Home, Self-Care Instructions: Low Back Strain (ED), Back Pain (ED) Additional Instructions: Return to the ED immediately for any urinary/bowel incontinence, dysuria, hematuria, flank pain, fever, chills, nausea, vomiting, abdominal pain, weakness of lower extremity, worsening back pain, testicular pain, or any other concerning symptoms. Please follow up with PCP for re-evaluation. IN no improvement in back pain may need MRI . Prescriptions: New naproxen 500 mg tablet 500 mg PO BID PRN (Reason: pain) 7 Days Qty: 14 0RF cyclobenzaprine 10 mg tablet 10 mg PO TID PRN (Reason: muscle spasm) 7 Days Qty: 21 0RF Rx Instructions: side effect is drowsiness. Do not take at work or while driving. lidocaine 4 % adhesive patch,medicated 1 patch topical DAILY PRN (Reason: pain) Qty: 10 0RF No Action dextroamphetamine-amphetamine 10 mg tablet 1 tab PO BID dextroamphetamine-amphetamine 10 mg Tablet 10 mg PO 0900,1400 Qty: 14 0RF Rx Instructions: Partial Fill upon patient request. omeprazole 40 mg capsule,delayed release(DR/EC) 40 mg PO DAILY Qty: 30 0RF Stand Alone Forms: Work/School Release Discharge Date/Time: 11/08/23 18:53 Print Language: Filipino
== END 2023-11-08 18:53 | disposition home or self-care (01) ==
PROVIDERS: Emergency Provider Student in an Organized Health Care Education/Training Program; PCP Internal Medicine
DX: M54.50 Low back pain, unspecified (principal); F90.9 Attention-deficit hyperactivity disorder, unspecified type; F31.81 Bipolar II disorder
CPT/HCPCS: 72100; 81003; 96372; 99283; 99284; J1885

== ENCOUNTER 2024-07-07 15:14 | Outpatient (REF) | payer BC, SELFPAY ==
[2024-07-07 18:16] LABS: CT PCR NOT DETECTED (Not Detect.); NG PCR DETECTED (Not Detect.)
[2024-07-08 10:36] LABS: Syphilis Screen Nonreactive (Nonreactive)
[2024-07-08 10:42] LABS: HIV AB/AG Nonreactive (Nonreactive); HIV Num 1 0.05 S/CO (0.00-0.99)
== END 2024-07-07 15:15 | disposition home or self-care (01) ==
LOC: HO.LAB 15:14
PROVIDERS: PCP Internal Medicine; Visit Provider Internal Medicine
DX: F10.11 Alcohol abuse, in remission (principal); M54.50 Low back pain, unspecified; Z11.3 Encounter for screening for infections with a predominantly sexual mode of transmission
CPT/HCPCS: 86780; 87389; 87491; 87591